=== PATIENT | male | born 1980 | race Two or more races ===

== ENCOUNTER 2023-11-09 18:10 | Inpatient (IN) | payer OTHER ==
[2023-11-09 20:41] VITALS: BMI 27.8
[2023-11-09] MEDS ORDERED: BISMUTH SUBSALICYLATE 524 MG/30 ML PO PRN (21:40)
[2023-11-09] MEDS ORDERED: MAGNESIUM HYDROX 2400MG/30ML ORAL SUSPENSION 30 ML CUP PO PRN (21:40)
[2023-11-09] MEDS ORDERED: guaiFENesin 600 MG TABLET.ER (FP) PO PRN (21:40)
[2023-11-09] MEDS ORDERED: BENZOCAINE/MENTHOL (CHLORASEPTIC ) LOZENGE MM PRN (21:40)
[2023-11-09] MEDS ORDERED: NALOXONE HCL (KLOXXADO) 8 MG SPRAY NS PRN (21:40)
[2023-11-09] MEDS ORDERED: POLYETHYLENE GLYCOL (HEALTHYLAX) 3350 17 GM PACKET PO PRN (21:40)
[2023-11-09] MEDS ORDERED: BENZONATATE 200 MG CAPSULE PO PRN (21:40)
[2023-11-09] MEDS ORDERED: NICOTINE POLACRILEX 4 MG GUM BUC PRN (21:40)
[2023-11-09] MEDS ORDERED: ACETAMINOPHEN 325 MG TABLET (FP) PO PRN (21:40)
[2023-11-09] MEDS ORDERED: IBUPROFEN 400 MG TABLET (FP) PO PRN (21:40)
[2023-11-09] MEDS ORDERED: MAG HYDROX/AL HYDROX/SIMETH 30 ML UNIT-DOSE CUP PO PRN (21:40)
[2023-11-09] MEDS ORDERED: NALOXONE HCL 0.4 MG/ML VIAL IM PRN (21:40)
[2023-11-09] MEDS ORDERED: LOPERAMIDE HCL 2 MG CAPSULE PO PRN (21:40)
[2023-11-09] MEDS ORDERED: DICYCLOMINE HCL 10 MG CAPSULE PO PRN (21:40)
[2023-11-10] MEDS: THIAMINE HCL 100 MG TABLET (FP) PO SCH (06:33)
[2023-11-10] MEDS: MELATONIN 5 MG TABLETS PO SCH (06:33)
[2023-11-10] MEDS ORDERED: NICOTINE 21 MG/24 HOURS TOPICAL PATCH ONE (09:03)
[2023-11-10] MEDS ORDERED: IBUPROFEN 600 MG TABLET (FP) PO ONE (09:04)
[2023-11-10] MEDS ORDERED: PRENATAL VITAMINS W/ FOLIC ACID TABLET (FP) PO ONE (09:04)
[2023-11-10] MEDS ORDERED: methaDONE HCL 10 MG TABLET (FOR DETOX USE ONLY) ONE (09:04)
[2023-11-10] MEDS: methaDONE HCL 10 MG TABLET (FOR DETOX USE ONLY) PO ONE (09:06)
[2023-11-10] MEDS: NICOTINE 21 MG/24 HOURS TOPICAL PATCH TD SCH (09:07)
[2023-11-10] MEDS: PRENATAL VITAMINS W/ FOLIC ACID TABLET (FP) PO SCH (09:07)
[2023-11-10] MEDS: IBUPROFEN 600 MG TABLET (FP) PO PRN (22:24)
[2023-11-11] MEDS: cloNIDine HCL 0.1 MG TABLET PO PRN (22:23)
[2023-11-12] MEDS: methaDONE HCL 10 MG TABLET (FOR DETOX USE ONLY) PO ONE (09:25)
[2023-11-14] MEDS: methaDONE HCL 10 MG TABLET (FOR DETOX USE ONLY) PO ONE (10:18)
[2023-11-14 11:48] LABS: POTASSIUM 4.3 mmol/L (3.5-5.1)
[2023-11-14 11:51] LABS: ALBUMIN 3.2 g/dl (3.4-5.0); CALCIUM 8.8 mg/dL (8.5-10.1)
[2023-11-14 11:53] LABS: BLOOD UREA NITROGEN 11.5 mg/dL (7-18)
[2023-11-14 11:55] LABS: CREATININE 0.8 mg/dL (0.55-1.3)
[2023-11-14 11:56] LABS: BILIRUBIN,TOTAL 0.4 mg/dL (0.2-1); TOT PROT 6.3 g/dl (6.4-8.2)
[2023-11-15 06:11] VITALS: PULSE 64
[2023-11-15 09:25] VITALS: BP 116/69; RESP 20; TEMP 97.3
== END 2023-11-15 09:40 | disposition home or self-care (01) | DRG 897 ==
LOC: YASAS 18:10 → Y6N 11-10 06:41
PROVIDERS: ADMIT Allergy & Immunology; ATTEND Allergy & Immunology
PROC: HZ2ZZZZ Detoxification Services for Substance Abuse Treatment (ICD-10-PCS; principal; 2023-11-10)
DX: F11.23 Opioid dependence with withdrawal (principal); F19.282 Other psychoactive substance dependence with psychoactive substance-induced sleep disorder; Z59.01 Sheltered homelessness; F12.20 Cannabis dependence, uncomplicated; F17.210 Nicotine dependence, cigarettes, uncomplicated; F19.24 Other psychoactive substance dependence with psychoactive substance-induced mood disorder; H54.62 Unqualified visual loss, left eye, normal vision right eye; B18.2 Chronic viral hepatitis C; M79.89 Other specified soft tissue disorders; R60.0 Localized edema
CPT/HCPCS: 36415; 80053; 80305; 86780; 87635; 93005; 93010; 93970-TC; 99284-25

== ENCOUNTER 2024-04-18 17:36 | Inpatient (IN) | payer OTHER ==
[2024-04-18 18:18] VITALS: BMI 30.1
[2024-04-18] MEDS ORDERED: MAGNESIUM HYDROX 2400MG/30ML ORAL SUSPENSION 30 ML CUP PO PRN (18:46)
[2024-04-18] MEDS ORDERED: NICOTINE POLACRILEX 2 MG LOZENGE BC PRN (18:46)
[2024-04-18] MEDS ORDERED: BISMUTH SUBSALICYLATE 524 MG/30 ML PO PRN (18:46)
[2024-04-18] MEDS ORDERED: BENZONATATE 200 MG CAPSULE PO PRN (18:46)
[2024-04-18] MEDS ORDERED: NICOTINE POLACRILEX 2 MG GUM BUC PRN (18:46)
[2024-04-18] MEDS ORDERED: LOPERAMIDE HCL 2 MG CAPSULE PO PRN (18:46)
[2024-04-18] MEDS ORDERED: IBUPROFEN 400 MG TABLET (FP) PO PRN (18:46)
[2024-04-18] MEDS ORDERED: BENZOCAINE/MENTHOL (CHLORASEPTIC ) LOZENGE MM PRN (18:46)
[2024-04-18] MEDS ORDERED: POLYETHYLENE GLYCOL (HEALTHYLAX) 3350 17 GM PACKET PO PRN (18:46)
[2024-04-18] MEDS ORDERED: NALOXONE (NARCAN) HCL 4 MG/0.1 ML SPRAY NS PRN (18:46)
[2024-04-18] MEDS ORDERED: guaiFENesin 600 MG TABLET.ER (FP) PO PRN (18:46)
[2024-04-18] MEDS ORDERED: P-EPHED 60MG/TRIPROLIDI 2.5MG TABLET PO PRN (18:46)
[2024-04-18] MEDS ORDERED: NALOXONE HCL 0.4 MG/ML VIAL IM PRN (18:46)
[2024-04-18] MEDS: hydrOXYzine PAMOATE 25 MG CAPSULE (FP) PO PRN (19:53)
[2024-04-18] MEDS: IBUPROFEN 600 MG TABLET (FP) PO PRN (19:55)
[2024-04-18] MEDS: MELATONIN 5 MG TABLETS PO SCH (22:36)
[2024-04-18] MEDS: METHOCARBAMOL 500 MG TABLET PO PRN (22:36)
[2024-04-18] MEDS: THIAMINE 100 MG TABLET PO SCH (22:37)
[2024-04-19] MEDS: PRENATAL VITAMINS W/ FOLIC ACID TABLET (FP) PO SCH (10:57)
[2024-04-19] MEDS: ACETAMINOPHEN 325 MG TABLET (FP) PO PRN (22:46)
[2024-04-20] MEDS: ONDANSETRON *ODT* 4 MG TABLET SL PRN (09:26)
[2024-04-20] MEDS: methaDONE HCL 10 MG TABLET (FOR DETOX USE ONLY) PO ONE (09:26)
[2024-04-20 10:11] LABS: BASO % 0.7 % (0-2.0); EOS % 0.3 % (0-4.5); HEMATOCRIT 41.2 % (35.4-49); HEMOGLOBIN 13.7 GM/dL (11.7-16.9); LYMPH % 35.1 % (8-40); MCH 29.1 pg (25.7-33.7); MCHC 33.3 g/dl (32.0-35.9); MEAN CELL VOLUME 87.3 fl (80-96); MEAN PLT VOLUME 8.6 fl (7.5-11.1); MONO % 11.1 % (3.8-10.2); NEUT % 52.8 % (42.8-82.8); PLATELET COUNT 312 10^3/uL (134-434); RBC 4.72 M/mm3 (4.00-5.60); RDW 13.2 % (11.9-15.9); WHITE BLOOD COUNT 5.8 K/mm3 (4.0-10.0)
[2024-04-20 12:05] LABS: POTASSIUM 4.7 mmol/L (3.5-5.1)
[2024-04-20 12:07] LABS: ALBUMIN 3.7 g/dl (3.4-5.0); BLOOD UREA NITROGEN 11.5 mg/dL (7-18); CALCIUM 9.3 mg/dL (8.5-10.1)
[2024-04-20 12:10] LABS: CREATININE 0.9 mg/dL (0.55-1.3)
[2024-04-20 12:12] LABS: BILIRUBIN,TOTAL 0.5 mg/dL (0.2-1); TOT PROT 8.2 g/dl (6.4-8.2)
[2024-04-20] MEDS: DICYCLOMINE HCL 10 MG CAPSULE PO PRN (17:46)
[2024-04-20] MEDS: cloNIDine HCL 0.1 MG TABLET PO PRN (17:46)
[2024-04-21] MEDS: TRIMETHOBENZAMIDE HCL 200MG/2ML INJ IM ONE (07:09)
[2024-04-22] MEDS: methaDONE HCL 10 MG TABLET (FOR DETOX USE ONLY) PO ONE (09:44)
[2024-04-23] MEDS: MAG HYDROX/AL HYDROX/SIMETH 30 ML UNIT-DOSE CUP PO PRN (07:46)
[2024-04-23 08:47] VITALS: BP 129/72; PULSE 67; RESP 16; TEMP 97.6
== END 2024-04-23 10:30 | disposition home or self-care (01) | DRG 897 ==
LOC: YASAS 17:36 → Y6N 19:33
PROVIDERS: ADMIT Allergy & Immunology; ATTEND Surgery
PROC: HZ2ZZZZ Detoxification Services for Substance Abuse Treatment (ICD-10-PCS; principal; 2024-04-18)
DX: F11.23 Opioid dependence with withdrawal (principal); F12.20 Cannabis dependence, uncomplicated; F17.210 Nicotine dependence, cigarettes, uncomplicated; B18.2 Chronic viral hepatitis C
CPT/HCPCS: 36415; 80053; 80305; 85025; 86780; Q0162

== ENCOUNTER 2024-07-16 16:08 | Inpatient (IN) | payer OTHER ==
[2024-07-16 17:07] VITALS: BMI 31.8
[2024-07-16] MEDS ORDERED: POLYETHYLENE GLYCOL (HEALTHYLAX) 3350 17 GM PACKET PO PRN (20:02)
[2024-07-16] MEDS ORDERED: guaiFENesin 600 MG TABLET.ER (FP) PO PRN (20:02)
[2024-07-16] MEDS ORDERED: DICYCLOMINE HCL 10 MG CAPSULE PO PRN (20:02)
[2024-07-16] MEDS ORDERED: NICOTINE POLACRILEX 2 MG GUM BUC PRN (20:02)
[2024-07-16] MEDS ORDERED: BISMUTH SUBSALICYLATE 524 MG/30 ML PO PRN (20:02)
[2024-07-16] MEDS ORDERED: ACETAMINOPHEN 325 MG TABLET (FP) PO PRN (20:02)
[2024-07-16] MEDS ORDERED: BENZOCAINE/MENTHOL (CHLORASEPTIC ) LOZENGE MM PRN (20:02)
[2024-07-16] MEDS ORDERED: NICOTINE POLACRILEX 2 MG LOZENGE BC PRN (20:02)
[2024-07-16] MEDS ORDERED: NALOXONE (NARCAN) HCL 4 MG/0.1 ML SPRAY NS PRN (20:02)
[2024-07-16] MEDS ORDERED: IBUPROFEN 400 MG TABLET (FP) PO PRN (20:02)
[2024-07-16] MEDS ORDERED: LOPERAMIDE HCL 2 MG CAPSULE PO PRN (20:02)
[2024-07-16] MEDS ORDERED: DOCUSATE SODIUM 100 MG CAPSULE (FP) PO PRN (20:02)
[2024-07-16] MEDS ORDERED: MAG HYDROX/AL HYDROX/SIMETH 30 ML UNIT-DOSE CUP PO PRN (20:02)
[2024-07-16] MEDS ORDERED: BENZONATATE 200 MG CAPSULE PO PRN (20:02)
[2024-07-16] MEDS: methaDONE HCL 10 MG TABLET (FOR DETOX USE ONLY) PO ONE (22:37)
[2024-07-16] MEDS: MELATONIN 5 MG TABLETS PO SCH (22:43)
[2024-07-16] MEDS: THIAMINE 100 MG TABLET PO SCH (22:43)
[2024-07-17] MEDS: PRENATAL VITAMINS W/ FOLIC ACID TABLET (FP) PO SCH (10:23)
[2024-07-17] MEDS: ONDANSETRON *ODT* 4 MG TABLET SL PRN (10:27)
[2024-07-17] MEDS: P-EPHED 60MG/TRIPROLIDI 2.5MG TABLET PO PRN (22:11)
[2024-07-17] MEDS: METHOCARBAMOL 500 MG TABLET PO PRN (22:14)
[2024-07-17] MEDS: cloNIDine HCL 0.1 MG TABLET PO PRN (22:14)
[2024-07-18] MEDS: methaDONE HCL 10 MG TABLET (FOR DETOX USE ONLY) PO ONE (10:31)
[2024-07-19] MEDS: MAGNESIUM HYDROX 2400MG/30ML ORAL SUSPENSION 30 ML CUP PO PRN (10:06)
[2024-07-19] MEDS: IBUPROFEN 600 MG TABLET (FP) PO PRN (18:00)
[2024-07-20] MEDS: TRIMETHOBENZAMIDE HCL 200MG/2ML INJ IM ONE (09:53)
[2024-07-20] MEDS: methaDONE HCL 10 MG TABLET (FOR DETOX USE ONLY) PO ONE (10:53)
[2024-07-21] MEDS ORDERED: NALOXONE (NYS OPIOID OVERDOSE PROGRAM) 4 MG/0.1 ML SPRAY NS PRN (08:00)
[2024-07-21 08:58] VITALS: BP 130/74; PULSE 67; RESP 19; TEMP 98
== END 2024-07-21 09:13 | disposition other institution (70) | DRG 897 ==
LOC: YASAS 16:08 → Y3N 20:14
PROVIDERS: ADMIT Allergy & Immunology; ATTEND Surgery
PROC: HZ2ZZZZ Detoxification Services for Substance Abuse Treatment (ICD-10-PCS; principal; 2024-07-16)
DX: F11.23 Opioid dependence with withdrawal (principal); Z59.00 Homelessness unspecified; F12.20 Cannabis dependence, uncomplicated; F17.210 Nicotine dependence, cigarettes, uncomplicated; H54.61 Unqualified visual loss, right eye, normal vision left eye; B18.2 Chronic viral hepatitis C
CPT/HCPCS: 80305; 80307; 93005; 93010; Q0162

== ENCOUNTER 2024-09-10 17:50 | Inpatient (IN) | payer OTHER ==
[2024-09-10 18:07] VITALS: BMI 32.0
[2024-09-10] MEDS ORDERED: BISMUTH SUBSALICYLATE 524 MG/30 ML PO PRN (18:19)
[2024-09-10] MEDS ORDERED: LOPERAMIDE HCL 2 MG CAPSULE PO PRN (18:19)
[2024-09-10] MEDS ORDERED: MAG HYDROX/AL HYDROX/SIMETH 30 ML UNIT-DOSE CUP PO PRN (18:19)
[2024-09-10] MEDS ORDERED: NICOTINE POLACRILEX 2 MG LOZENGE BC PRN (18:19)
[2024-09-10] MEDS ORDERED: IBUPROFEN 400 MG TABLET (FP) PO PRN (18:19)
[2024-09-10] MEDS ORDERED: POLYETHYLENE GLYCOL (HEALTHYLAX) 3350 17 GM PACKET PO PRN (18:19)
[2024-09-10] MEDS ORDERED: BENZONATATE 200 MG CAPSULE PO PRN (18:19)
[2024-09-10] MEDS ORDERED: ACETAMINOPHEN 325 MG TABLET (FP) PO PRN (18:19)
[2024-09-10] MEDS ORDERED: P-EPHED 60MG/TRIPROLIDI 2.5MG TABLET PO PRN (18:19)
[2024-09-10] MEDS ORDERED: BENZOCAINE/MENTHOL (CHLORASEPTIC ) LOZENGE MM PRN (18:19)
[2024-09-10] MEDS ORDERED: guaiFENesin 600 MG TABLET.ER (FP) PO PRN (18:19)
[2024-09-10] MEDS ORDERED: MAGNESIUM HYDROX 2400MG/30ML ORAL SUSPENSION 30 ML CUP PO PRN (18:19)
[2024-09-10] MEDS ORDERED: NALOXONE (NARCAN) HCL 4 MG/0.1 ML SPRAY NS PRN (18:19)
[2024-09-10] MEDS ORDERED: NICOTINE POLACRILEX 2 MG GUM BUC PRN (18:19)
[2024-09-10] MEDS: THIAMINE 100 MG TABLET PO SCH (22:45)
[2024-09-10] MEDS: MELATONIN 5 MG TABLETS PO SCH (22:45)
[2024-09-10] MEDS: methaDONE HCL 10 MG TABLET (FOR DETOX USE ONLY) PO PRN (22:47)
[2024-09-11] MEDS: PRENATAL VITAMINS W/ FOLIC ACID TABLET (FP) PO SCH (09:52)
[2024-09-11] MEDS: methaDONE HCL 10 MG TABLET (FOR DETOX USE ONLY) PO ONE (09:53)
[2024-09-11] MEDS: DICYCLOMINE HCL 10 MG CAPSULE PO PRN (09:55)
[2024-09-11] MEDS: METHOCARBAMOL 500 MG TABLET PO PRN (21:33)
[2024-09-11] MEDS: cloNIDine HCL 0.1 MG TABLET PO PRN (21:33)
[2024-09-13] MEDS: IBUPROFEN 600 MG TABLET (FP) PO PRN (09:23)
[2024-09-13] MEDS: ONDANSETRON *ODT* 4 MG TABLET SL PRN (09:23)
[2024-09-13] MEDS: methaDONE HCL 10 MG TABLET (FOR DETOX USE ONLY) PO ONE (09:24)
[2024-09-15] MEDS: methaDONE HCL 10 MG TABLET (FOR DETOX USE ONLY) PO ONE (10:19)
[2024-09-15] MEDS: NALOXONE (NYS OPIOID OVERDOSE PROGRAM) 4 MG/0.1 ML SPRAY NS SCH (13:16)
[2024-09-16 09:24] VITALS: BP 137/81; PULSE 82; RESP 18; TEMP 98.1
== END 2024-09-16 10:38 | disposition other institution (70) | DRG 897 ==
LOC: YASAS 17:50 → Y6N 18:39
PROVIDERS: ADMIT Allergy & Immunology; ATTEND Allergy & Immunology
PROC: HZ2ZZZZ Detoxification Services for Substance Abuse Treatment (ICD-10-PCS; principal; 2024-09-10)
DX: F11.23 Opioid dependence with withdrawal (principal); Z59.00 Homelessness unspecified; F12.20 Cannabis dependence, uncomplicated; F17.210 Nicotine dependence, cigarettes, uncomplicated; F41.9 Anxiety disorder, unspecified; H54.62 Unqualified visual loss, left eye, normal vision right eye; R53.1 Weakness; R26.89 Other abnormalities of gait and mobility; Z86.19 Personal history of other infectious and parasitic diseases
CPT/HCPCS: Q0162

== ENCOUNTER 2024-10-19 10:40 | Inpatient (IN) | payer OTHER ==
[2024-10-19 11:04] VITALS: BMI 33.0
[2024-10-19] MEDS ORDERED: IBUPROFEN 400 MG TABLET (FP) PO PRN (11:19)
[2024-10-19] MEDS ORDERED: guaiFENesin 600 MG TABLET.ER (FP) PO PRN (11:19)
[2024-10-19] MEDS ORDERED: POLYETHYLENE GLYCOL (HEALTHYLAX) 3350 17 GM PACKET PO PRN (11:19)
[2024-10-19] MEDS ORDERED: LOPERAMIDE HCL 2 MG CAPSULE PO PRN (11:19)
[2024-10-19] MEDS ORDERED: BENZOCAINE/MENTHOL (CHLORASEPTIC ) LOZENGE MM PRN (11:19)
[2024-10-19] MEDS ORDERED: BISMUTH SUBSALICYLATE 524 MG/30 ML PO PRN (11:19)
[2024-10-19] MEDS ORDERED: ONDANSETRON *ODT* 4 MG TABLET SL PRN (11:19)
[2024-10-19] MEDS ORDERED: MAGNESIUM HYDROX 2400MG/30ML ORAL SUSPENSION 30 ML CUP PO PRN (11:19)
[2024-10-19] MEDS ORDERED: P-EPHED 60MG/TRIPROLIDI 2.5MG TABLET PO PRN (11:19)
[2024-10-19] MEDS ORDERED: NICOTINE POLACRILEX 2 MG GUM BUC PRN (11:19)
[2024-10-19] MEDS ORDERED: NICOTINE POLACRILEX 2 MG LOZENGE BC PRN (11:19)
[2024-10-19] MEDS ORDERED: BENZONATATE 200 MG CAPSULE PO PRN (11:19)
[2024-10-19] MEDS ORDERED: NALOXONE (NARCAN) HCL 4 MG/0.1 ML SPRAY NS PRN (11:19)
[2024-10-19] MEDS ORDERED: MAG HYDROX/AL HYDROX/SIMETH 30 ML UNIT-DOSE CUP PO PRN (11:19)
[2024-10-19] MEDS ORDERED: ACETAMINOPHEN 325 MG TABLET (FP) PO PRN (11:19)
[2024-10-19] MEDS: methaDONE HCL 10 MG TABLET (FOR DETOX USE ONLY) PO ONE (16:54)
[2024-10-19] MEDS: METHOCARBAMOL 500 MG TABLET PO PRN (22:26)
[2024-10-19] MEDS: THIAMINE 100 MG TABLET PO SCH (22:26)
[2024-10-19] MEDS: MELATONIN 5 MG TABLETS PO SCH (22:26)
[2024-10-19] MEDS: cloNIDine HCL 0.1 MG TABLET PO PRN (22:26)
[2024-10-20] MEDS: PRENATAL VITAMINS W/ FOLIC ACID TABLET (FP) PO SCH (09:27)
[2024-10-20 11:12] LABS: HEMATOCRIT 42.8 % (35.4-49); HEMOGLOBIN 14.1 GM/dL (11.7-16.9); MCH 29.3 pg (25.7-33.7); MEAN CELL VOLUME 88.8 fl (80-96); MEAN PLT VOLUME 10.4 fl (7.5-11.1); PLATELET COUNT 114 10^3/uL (134-434); RBC 4.82 M/mm3 (4.00-5.60); RDW 13.7 % (11.9-15.9); WHITE BLOOD COUNT 3.6 K/mm3 (4.0-10.0)
[2024-10-20 11:31] LABS: ALBUMIN 3.5 g/dl (3.4-5.0); BLOOD UREA NITROGEN 12.1 mg/dL (7-18)
[2024-10-20 11:33] LABS: CREATININE 0.7 mg/dL (0.55-1.3)
[2024-10-20 11:34] LABS: BILIRUBIN,TOTAL 0.5 mg/dL (0.2-1)
[2024-10-20 11:35] LABS: TOT PROT 6.9 g/dl (6.4-8.2)
[2024-10-21] MEDS: methaDONE HCL 10 MG TABLET (FOR DETOX USE ONLY) PO ONE (09:22)
[2024-10-22] MEDS ORDERED: VITAMINS A AND D TOPICAL OINTMENT TP SCH (12:00)
[2024-10-22] MEDS: IBUPROFEN 600 MG TABLET (FP) PO PRN (22:04)
[2024-10-23] MEDS: methaDONE HCL 10 MG TABLET (FOR DETOX USE ONLY) PO ONE (10:10)
[2024-10-23 20:44] VITALS: RESP 16
[2024-10-23] MEDS: DICYCLOMINE HCL 10 MG CAPSULE PO PRN (21:33)
[2024-10-24 06:26] VITALS: BP 117/79; PULSE 70; TEMP 98.6
== END 2024-10-24 09:34 | disposition home or self-care (01) | DRG 897 ==
LOC: YASAS 10:40 → Y3N 13:59
PROVIDERS: ADMIT Neuromusculoskeletal Medicine & OMM; ATTEND Allergy & Immunology
PROC: HZ2ZZZZ Detoxification Services for Substance Abuse Treatment (ICD-10-PCS; principal; 2024-10-19)
DX: F19.230 Other psychoactive substance dependence with withdrawal, uncomplicated (principal); F11.23 Opioid dependence with withdrawal; F12.20 Cannabis dependence, uncomplicated; F17.210 Nicotine dependence, cigarettes, uncomplicated; B19.20 Unspecified viral hepatitis C without hepatic coma
CPT/HCPCS: 36415; 80053; 80305; 80307; 85027; 86780